=== PATIENT | female | born 1990 | race American Indian/Alaskan Native ===

== ENCOUNTER 2018-04-16 09:17 | Emergency (ER) | payer MEDICAID, OTHER ==
[2018-04-16] MEDS ORDERED: PERCOCET 5/325 PO ONE (10:05)
[2018-04-16] MEDS ORDERED: ZOFRAN ODT PO ONE (10:05)
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
[2018-04-16 10:57] VITALS: BP 126/80
== END 2018-04-16 11:10 | disposition home or self-care (01) ==
LOC: ED 09:17
DX: O9A.212 Injury, poisoning and certain other consequences of external causes complicating pregnancy, second trimester (principal); S01.01XA Laceration without foreign body of scalp, initial encounter; R10.32 Left lower quadrant pain; O16.2 Unspecified maternal hypertension, second trimester; Z3A.16 16 weeks gestation of pregnancy; Y04.8XXA Assault by other bodily force, initial encounter; Y93.89 Activity, other specified; Y92.89 Other specified places as the place of occurrence of the external cause; Y99.8 Other external cause status
CPT/HCPCS: Q0162

== ENCOUNTER 2020-01-03 19:20 | Emergency (ER) | payer SELFPAY | END 2020-01-04 | disposition left against medical advice (07) | LOC: ED 19:20 | DX: I74.9 Embolism and thrombosis of unspecified artery (principal); Z53.21 Procedure and treatment not carried out due to patient leaving prior to being seen by health care provider ==

== ENCOUNTER 2020-01-04 10:44 | Emergency (ER) | payer SELFPAY ==
[2020-01-04 11:27] VITALS: BP 157/108
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
--- NOTE | 2020-01-04 12:24 | Ultrasound Report ---
ULTRASOUND PELVIS COMPLETE INDICATION / CLINICAL INFORMATION: heavy vaginal bleeding. TECHNIQUE: Transabdominal. Duplex Color Doppler used: Yes. COMPARISON: None available FINDINGS: UTERUS: Anteverted - Appearance (if present): No significant abnormality. - Size in cm (if present): 8.4 x 5.1 x 6.8. - Endometrial Complex (if present): No significant abnormality.. Thickness in cm (if measured) = 0.6 cm - Mass lesions: None. - Additional findings: None. RIGHT ADNEXA: The right ovary is not visualized. LEFT ADNEXA: The left ovary measures 5.2 x 5.4 x 3.5 cm and contains a 3.4 cm simple cyst. Normal col or Doppler blood flow. URINARY BLADDER: No significant abnormality. FREE FLUID: None. ADDITIONAL FINDINGS: None. IMPRESSION: Unremarkable uterus and endometrium. The right ovary is not visualized. 3.4 cm left ovarian cyst. No clear explanation for heavy vaginal bleeding. Signer Name: Tobin Street Jr, MD Signed: 01/04/2020 12:20 PM Workstation Name: [id number]
== END 2020-01-04 14:42 | disposition left against medical advice (07) ==
LOC: ED 10:44
DX: R10.30 Lower abdominal pain, unspecified (principal); Z53.21 Procedure and treatment not carried out due to patient leaving prior to being seen by health care provider
CPT/HCPCS: 76856

== ENCOUNTER 2021-05-14 13:26 | Emergency (ER) | payer MEDICAID | END 2021-05-14 17:06 | disposition left against medical advice (07) | LOC: ED 13:26 | DX: R10.9 Unspecified abdominal pain (principal); Z53.21 Procedure and treatment not carried out due to patient leaving prior to being seen by health care provider ==